=== PATIENT | female | born 1940 | race Caucasian/White ===

== ENCOUNTER → 2017-02-15 | Outpatient (CLI) | payer MEDICARE, OTHER ==
[~2017-02-15] MED LIST: ASPIRIN81 M2 PO; FLAX SEED OIL1000 M2 PO; GARLIC600 MG PO; GARLIQUE5000 MCG PO; HYDROCODON-ACE1 EAC9 PO; MULTI VITAMIN1 EACH PO; PROBIOTIC1 EAC1 PO; PROBIOTIC1 EAC3 PO; VITAMIN C WITH500 M2 PO
--- NOTE | ~2017-02-15 | EKG ---
PATIENT: LORE KIDD UNIT #: [id number] Ventricular Rate: 67 BPM Atrial Rate: 67 BPM P-R Interval: 178 ms QRS Duration: 92 ms Q-T Interval: 402 ms QTC Calculation(Bezet): 424 ms P [place]: 68 degrees Calculated R [place]: 49 degrees Calculated T [place]: 60 degrees Diagnosis Line: Normal sinus rhythm Diagnosis Line: Normal ECG Diagnosis Line: No previous ECGs available Diagnosis Line: Confirmed by TITI PETERSEN MD ([id number]) on 02/15/2017 Diagnosis Line: 10:05:43 AM INTERPRETING MD: NICOLA MENSAH
[2017-02-15 09:16] LABS: HEMATOCRIT 39.9 % (35.0-45.0); HEMOGLOBIN 12.9 gm/dL (12.0-16.0); MEAN CELL VOLUME 85.3 FL (83-96); MEAN CORPUSCULAR HEMOGLOBIN 27.5 PG (28-34); MEAN CORPUSCULAR HGB CONC 32.3 g/dL (30-36); MEAN PLATELET VOLUME 7.9 FL (6.5-11.5); RED BLOOD COUNT 4.68 X10e (3.90-5.30); WHITE BLOOD COUNT 3.9 X10e3 (4.0-10.5)
== END | disposition home or self-care (01) ==
LOC: CAMB 07:46
PROVIDERS: Surgery
DX: Z01.818 Encounter for other preprocedural examination (principal); K43.9 Ventral hernia without obstruction or gangrene
CPT/HCPCS: 36415; 85027; 93005

== ENCOUNTER 2017-02-22 09:20 | Observation (INO) | payer MEDICARE, OTHER ==
--- NOTE | ~2017-02-22 | OR ---
Unit #: [id number] #: [id number] Patient: LORE KIDD [id number] [address] [place], [place] [address] [id number] MR#: [id number] NAME: LORE KIDD. ROOM: 458 Date of Procedure: 02/22/2017 Admission Date: 02/22/2017 Surgeon: Frankie Danielle Jr., M.D. : 1940 Attending Physician: Frankie Danielle Jr., M.D. Primary Care Physician: Iain Negrete A.P.R.N. PROCEDURE OPERATIVE NOTE INDICATION FOR PROCEDURE The patient is a 76-year-old white female who is obese, who has had problems with pain related to a large umbilical hernia. This has enlarged somewhat in size over the last couple of years and she desires repair of it. She was brought in at this time for repair of her hernia. She understands the procedure including the risks and consents. She understands attempts will be made to do this laparoscopically and it may be done open. The risks described to her were infection, recurrence, bleeding, intraabdominal organ injury and chronic pain. PREOPERATIVE DIAGNOSIS Chronic, incarcerated, large umbilical hernia. POSTOPERATIVE DIAGNOSIS Chronic, incarcerated, large umbilical hernia, noting approximately a 4 to 5 cm defect with incarcerated omentum within it which was very tight. ANESTHESIA General with endotracheal intubation and 0.5% Marcaine with epinephrine locally at port sites. SURGEON Frankie Danielle Jr., M.D. OPERATION Laparoscopic reduction of incarcerated umbilical hernia with laparoscopic ventral hernia repair using a 4 x 6 inch Ventralight mesh. PROCEDURE The patient was positioned in the supine position. After being anesthetized and intubated, was prepped and draped in routine fashion for laparoscopic ventral hernia repair. A small incision was made in her left upper quadrant abdominal wall area and a 5 mm Optiview introduced in the abdomen followed by the camera. There was no evidence of any injury related to introduction of the Optiview. Brief intraabdominal exploration was carried out with a camera. The patient was noted to have a large amount of omentum incarcerated within her umbilical hernia. A 5 mm port was placed in the left lower quadrant abdominal wall area and a 5 mm port in the right upper quadrant and an 11 mm port in the right lower quadrant abdominal wall area under direct visualization. After this was complete, the omentum was slowly reduced with two grasping clamps until it was finally out of the hernia itself. There was a small hernia sac present Unit #: [id number] #: [id number] Patient: LORE KIDD which was left alone since it was attached to the skin of the umbilicus. Several hemoclips were used to control any bleeding from the omentum and, after total hemostasis was noted, the falciform was taken down with a hook cautery using a current of 20 and fatty tissue inferiorly was taken down approximately three to four inches. After the anterior abdominal wall was prepared and hemostasis was noted to be complete, a 6 x 4 inch Ventralight mesh was tacked in four corners, placed intraabdominal after being soaked in antibiotic solution and, using the Endoclose technique with four small 1 mm incisions peripherally, the sutures were hooked up and mesh brought up against the anterior abdominal wall and tacked in place with absorbable tacks. After this was complete, the area was checked. The mesh itself was completely intact and was well secured with no evidence of any problems. The sutures holding up were then lysed. Port sites were injected with 0.5W% Marcaine with epinephrine locally. The fascia at the larger port site was approximated with a neoClose technique. The wounds were irrigated after hemostasis was achieved with Bovie cautery. The skin edges on all the wounds were approximated with stainless-steel skin clips and skin stapling device except to the left lower quadrant wound which continued to ooze and it was closed with a interrupted 2-0 nylon mattress stitch. Sterile dressings were applied externally. Estimated blood loss less than 50 mL. The patient received less than 1500 mL crystalloid solution during the procedure. Sponge and instrument counts were correct x3. No drains used, no complications. The patient was taken to the recovery room with stable vital signs in satisfactory condition. Dictated by.Alicia. Frankie Danielle Jr., M.D. JMB/jade TD: 02/23/2017 05:37 JOB #: [id number] PROCEDURE OPERATIVE NOTE Page 1 of 1 X Frankie Danielle MD PROCEDURE OPERATIVE NOTE
[~2017-02-22 09:20] MED LIST changes: -HYDROCODON-ACE1 EAC9 PO
[2017-02-23 03:57] LABS: HEMATOCRIT 35.2 % (35.0-45.0); HEMOGLOBIN 11.7 gm/dL (12.0-16.0); MEAN CELL VOLUME 85.6 FL (83-96); MEAN CORPUSCULAR HEMOGLOBIN 28.3 PG (28-34); MEAN CORPUSCULAR HGB CONC 33.1 g/dL (30-36); RED BLOOD COUNT 4.12 X10e (3.90-5.30); RED CELL DISTRIBUTION WIDTH 14.9 % (11.0-15.5); WHITE BLOOD COUNT 5.8 X10e3 (4.0-10.5)
[2017-02-23] MEDS ORDERED: HYDROCODON-ACE1 EAC9 PO (08:18)
== END 2017-02-23 09:29 | disposition home or self-care (01) ==
LOC: CSUR 09:20 → CPACUOF 14:30 → C4B 14:30 → CSUR 14:30 → CPACUOF 17:59 → C4B 18:08
PROVIDERS: Surgery
DX: K42.0 Umbilical hernia with obstruction, without gangrene (principal); K21.9 Gastro-esophageal reflux disease without esophagitis; M19.90 Unspecified osteoarthritis, unspecified site; K22.2 Esophageal obstruction; E66.9 Obesity, unspecified; Z88.1 Allergy status to other antibiotic agents; Z79.82 Long term (current) use of aspirin; Z87.891 Personal history of nicotine dependence; Z83.3 Family history of diabetes mellitus; Z82.49 Family history of ischemic heart disease and other diseases of the circulatory system; Z82.3 Family history of stroke; Z80.0 Family history of malignant neoplasm of digestive organs
CPT/HCPCS: 85027; 96374; 96376; C1781; G0378; J0330; J0690; J1170; J1650; J2270; J2405; J2710; J3010